=== PATIENT | male | born 1945 | race African-American/Black ===

== ENCOUNTER 2018-02-18 00:46 | Emergency (ER) | payer SELFPAY ==
[~2018-02-18] VITALS: Ht 188 cm; Wt 100.0 kg
[2018-02-18] MEDS ORDERED: MORPHINE SULFATE 4 MG/ML CPJ (NOT FOR IM USE) IV STA (01:25)
[2018-02-18 02:08] LABS: CHLORIDE 101 mEq/L (98-107)
[2018-02-18 02:09] LABS: BASOPHILS % 0.5 % (0.0-2.0); EOSINOPHILS % 0.6 % (0.0-5.0); HEMATOCRIT. 36.6 % (42.0-52.0); HEMOGLOBIN. 12.3 g/dL (14.0-18.0); LYMPHOCYTES % 9.2 % (20.0-50.0); MEAN CORPUSCULAR HEMOGLOBIN 31.1 pg (28.0-32.0); MEAN CORPUSCULAR VOLUME 92.7 fL (80.0-94.0); MONOCYTES % 7.5 % (2.0-8.0); NEUTROPHILS % 82.2 % (40.0-76.0); PLATELET 203 x1000/uL (130-400); RED BLOOD CELL COUNT 3.94 mill/uL (4.7-6.1); RED CELL DISTRIBUTION WIDTH 14.6 % (11.6-14.6)
[2018-02-18] MEDS ORDERED: MORPHINE SULFATE 4 MG/ML CPJ (NOT FOR IM USE) IV ONE (03:15)
[2018-02-18 04:45] VITALS: BP 117/70
== END 2018-02-18 04:45 | disposition home or self-care (01) ==
LOC: ER 00:46
DX: M54.9 Dorsalgia, unspecified (principal); I10 Essential (primary) hypertension; Z98.1 Arthrodesis status; Z88.3 Allergy status to other anti-infective agents; Z88.5 Allergy status to narcotic agent
CPT/HCPCS: 36415; 72128; 72131; 80053; 85025; 96374; 96376; 99285; J2270

== ENCOUNTER 2021-10-11 12:44 | Inpatient (IN) | payer MEDICARE, MEDICAID ==
[~2021-10-11] VITALS: Ht 188 cm; Wt 86.2 kg
[2021-10-11] MEDS ORDERED: ONDANSETRON HCL 4MG/2ML INJ IV STA (13:00)
[2021-10-11] MEDS ORDERED: SODIUM CHLORIDE 0.9% 1,000 ML IV ONE (13:00)
[2021-10-11] MEDS ORDERED: LIDOCAINE HCL 1% 20ML VIAL (Pyxis) INJ ONE (14:35)
[2021-10-11 15:27] LABS: BASOPHILS % 0.3 % (0.0-2.0); EOSINOPHILS % 1.2 % (0.0-5.0); HEMATOCRIT. 35.5 % (42.0-52.0); HEMOGLOBIN. 11.5 g/dL (14.0-18.0); LYMPHOCYTES % 22.4 % (20.0-50.0); MEAN CORPUSCULAR HEMOGLOBIN 27.2 pg (28.0-32.0); MEAN CORPUSCULAR VOLUME 84.1 fL (80.0-94.0); MEAN PLATELET VOLUME 7.3 fl (7.4-10.4); MONOCYTES % 7.8 % (2.0-8.0); NEUTROPHILS % 68.3 % (40.0-76.0); PLATELET 191 x1000/uL (130-400); RED BLOOD CELL COUNT 4.22 mill/uL (4.7-6.1); RED CELL DISTRIBUTION WIDTH 16.9 % (11.6-14.6)
[2021-10-11 15:38] LABS: CHLORIDE 113 mEq/L (98-107)
[2021-10-11] MEDS ORDERED: MORPHINE SULFATE 4 MG/ML CPJ (NOT FOR IM USE) IV ONE (15:45)
[2021-10-11] MEDS ORDERED: DIPHENHYDRAMINE 50MG/ML VIAL IV PRN (18:30)
[2021-10-11] MEDS ORDERED: CLONIDINE 0.1MG TABLET PO PRN (18:30)
[2021-10-11] MEDS ORDERED: DOCUSATE SODIUM 100MG CAPSULE PO PRN (18:30)
[2021-10-11] MEDS ORDERED: ONDANSETRON HCL 4MG/2ML INJ IV PRN (18:30)
[2021-10-11] MEDS ORDERED: NA PHOS,M-B/NA PHOS,DI-BA ENEMA 118ML PR PRN (18:30)
[2021-10-11] MEDS ORDERED: LORAZEPAM 2MG/ML CPJ IV PRN (18:30)
[2021-10-11] MEDS ORDERED: GUAIFENESIN 200MG/10ML SUGAR FREE UDC PO PRN (18:30)
[2021-10-11] MEDS ORDERED: ACETAMINOPHEN 325MG TABLET PO PRN (18:30)
[2021-10-11] MEDS ORDERED: IPRATROPIUM/ALBUTEROL 0.5-3(2.5)MG/3ML NEB NEB PRN (18:30)
[2021-10-11] MEDS ORDERED: HYDROCODONE/ACETAMINOPHEN 5/325MG TABLET PO PRN (18:30)
[2021-10-11] MEDS ORDERED: MAGNESIUM/ALUMINUM HYDROXIDE/SIMETHICONE 30ML UDC PO PRN (18:30)
[2021-10-11 20:00] VITALS: BP 142/72
[2021-10-11] MEDS: SODIUM CHLORIDE 0.45% 1,000 ML IV SCH (20:00)
[2021-10-11] MEDS: ENOXAPARIN 30MG/0.3ML SYR SUBCUT SCH (20:14)
[2021-10-11] MEDS: MORPHINE SULFATE 2 MG/ML CPJ (NOT FOR IM USE) IV PRN (20:16)
[2021-10-11 23:14] LABS: CHLORIDE 114 mEq/L (98-107)
[2021-10-12] MEDS: MORPHINE SULFATE 2 MG/ML CPJ (NOT FOR IM USE) IV PRN ×6 (01:15→23:44)
[2021-10-12 04:00] VITALS: BP 129/86
[2021-10-12 08:00] VITALS: BP 132/73
[2021-10-12] MEDS: SODIUM CHLORIDE 0.45% 1,000 ML IV SCH ×2 (08:10→21:10)
[2021-10-12] MEDS: ENOXAPARIN 30MG/0.3ML SYR SUBCUT SCH (08:10)
[2021-10-12] MEDS: ASPIRIN 81MG EC TABLET PO SCH (08:50)
[2021-10-12] MEDS: METOPROLOL TARTRATE 25MG TABLET PO SCH ×2 (08:50→16:56)
[2021-10-12] MEDS: AMLODIPINE 10MG TABLET PO SCH (08:51)
[2021-10-12 10:06] LABS: CHLORIDE 112 mEq/L (98-107)
[2021-10-12] MEDS ORDERED: POTASSIUM CHLORIDE 20MEQ TABLET SR PO NR (10:30)
[2021-10-12 12:00] VITALS: BP 124/80
[2021-10-12 16:00] VITALS: BP 131/76
[2021-10-12 20:00] VITALS: BP 113/75
[2021-10-12] MEDS ORDERED: NALOXONE HCL 0.4MG/ML VIAL IV PRN (21:45)
[2021-10-13] VITALS: BP 140/76
[2021-10-13 04:00] VITALS: BP 135/73
[2021-10-13] MEDS: MORPHINE SULFATE 2 MG/ML CPJ (NOT FOR IM USE) IV PRN ×5 (04:43→21:04)
[2021-10-13 08:00] VITALS: BP 138/88
[2021-10-13] MEDS: ASPIRIN 81MG EC TABLET PO SCH (08:33)
[2021-10-13] MEDS: METOPROLOL TARTRATE 25MG TABLET PO SCH ×2 (08:34→17:49)
[2021-10-13] MEDS: AMLODIPINE 10MG TABLET PO SCH (08:34)
[2021-10-13] MEDS: ENOXAPARIN 40MG/0.4ML SYR SUBCUT SCH (08:35)
[2021-10-13] MEDS: SODIUM CHLORIDE 0.45% 1,000 ML IV SCH (11:12)
[2021-10-13 12:00] VITALS: BP 116/1
[2021-10-13 16:00] VITALS: BP 130/77
[2021-10-13 20:00] VITALS: BP 123/67
[2021-10-14] VITALS: BP 134/75
[2021-10-14] MEDS: MORPHINE SULFATE 2 MG/ML CPJ (NOT FOR IM USE) IV PRN ×6 (00:08→16:43)
[2021-10-14] MEDS: SODIUM CHLORIDE 0.45% 1,000 ML IV SCH ×2 (00:12→12:43)
[2021-10-14 08:00] VITALS: BP 139/78
[2021-10-14] MEDS: ASPIRIN 81MG EC TABLET PO SCH (08:47)
[2021-10-14] MEDS: AMLODIPINE 10MG TABLET PO SCH (08:47)
[2021-10-14] MEDS: METOPROLOL TARTRATE 25MG TABLET PO SCH ×2 (08:48→16:42)
[2021-10-14] MEDS: ENOXAPARIN 40MG/0.4ML SYR SUBCUT SCH (08:49)
[2021-10-14 10:36] LABS: BASOPHILS % 0.8 % (0.0-2.0); EOSINOPHILS % 1.5 % (0.0-5.0); HEMATOCRIT. 37.3 % (42.0-52.0); HEMOGLOBIN. 12.3 g/dL (14.0-18.0); LYMPHOCYTES % 30.4 % (20.0-50.0); MEAN CORPUSCULAR HEMOGLOBIN 27.3 pg (28.0-32.0); MEAN CORPUSCULAR VOLUME 82.6 fL (80.0-94.0); MEAN PLATELET VOLUME 7.4 fl (7.4-10.4); MONOCYTES % 8.8 % (2.0-8.0); NEUTROPHILS % 58.5 % (40.0-76.0); PLATELET 175 x1000/uL (130-400); RED BLOOD CELL COUNT 4.52 mill/uL (4.7-6.1); RED CELL DISTRIBUTION WIDTH 16.7 % (11.6-14.6)
[2021-10-14 10:50] LABS: CHLORIDE 111 mEq/L (98-107)
[2021-10-14 12:20] VITALS: BP 128/70
[2021-10-14 16:00] VITALS: BP 122/68
[2021-10-14 17:08] VITALS: BP 122/68
[2021-10-30] MEDS ORDERED: OMEP40CA20 MT (01:22)
== END 2021-10-14 18:38 | disposition home or self-care (01) | DRG 392 ==
LOC: ER 12:44 → 6EST 15:28 → ENRESERV 16:38
PROVIDERS: ADMIT Internal Medicine; ATTEND Internal Medicine
PROC: 02HV33Z Insertion of Infusion Device into Superior Vena Cava, Percutaneous Approach (ICD-10-PCS; principal; 2021-10-11)
PROC: B548ZZA Ultrasonography of Superior Vena Cava, Guidance (ICD-10-PCS; 2021-10-11)
DX: K57.90 Diverticulosis of intestine, part unspecified, without perforation or abscess without bleeding (principal); E87.0 Hyperosmolality and hypernatremia; D64.9 Anemia, unspecified; E86.0 Dehydration; I10 Essential (primary) hypertension; Z82.49 Family history of ischemic heart disease and other diseases of the circulatory system; Z88.1 Allergy status to other antibiotic agents
CPT/HCPCS: 36415; 71045; 74176; 76937; 80048; 80053; 83605; 85025; 93005; 99285; J1650; J2270; J3490; J7030

== ENCOUNTER 2022-03-15 23:00 | Inpatient (IN) | payer MEDICARE, MEDICAID ==
[~2022-03-15] VITALS: Ht 188 cm; Wt 103.5 kg
[~2022-03-15 23:00] MED LIST: OMEP40CA20 MT
[2022-03-16] MEDS ORDERED: ASPIRIN 325MG EC TABLET PO ONE (02:15)
[2022-03-16 02:33] LABS: BASOPHILS % 0.7 % (0.0-2.0); EOSINOPHILS % 1.5 % (0.0-5.0); HEMATOCRIT. 43.9 % (42.0-52.0); HEMOGLOBIN. 14.4 g/dL (14.0-18.0); MEAN CORPUSCULAR HEMOGLOBIN 28.7 pg (28.0-32.0); MEAN CORPUSCULAR VOLUME 87.2 fL (80.0-94.0); MEAN PLATELET VOLUME 7.7 fl (7.4-10.4); MONOCYTES % 10.5 % (2.0-8.0); NEUTROPHILS % 61.3 % (40.0-76.0); PLATELET 197 x1000/uL (130-400); RED BLOOD CELL COUNT 5.03 mill/uL (4.7-6.1); RED CELL DISTRIBUTION WIDTH 15.7 % (11.6-14.6)
[2022-03-16 02:40] LABS: CHLORIDE 107 mEq/L (98-107)
[2022-03-16 02:51] LABS: ETHANOL BLOOD < 10 mg/dL
[2022-03-16] MEDS ORDERED: HYDROCODONE/ACETAMINOPHEN 5/325MG TABLET PO PRN ×2 (09:45→14:30)
[2022-03-16] MEDS ORDERED: NALOXONE HCL 0.4MG/ML VIAL IV PRN (10:00)
[2022-03-16 14:30] VITALS: BP 133/74
[2022-03-16] MEDS ORDERED: LORAZEPAM 0.5MG TABLET PO PRN (14:30)
[2022-03-16] MEDS ORDERED: IPRATROPIUM/ALBUTEROL 0.5-3(2.5)MG/3ML NEB HHN PRN (14:30)
[2022-03-16] MEDS ORDERED: CLONIDINE 0.1MG TABLET PO PRN (14:30)
[2022-03-16] MEDS: OMEPRAZOLE 20MG CAPSULE EXTENDED RELEASE PO SCH (14:30)
[2022-03-16] MEDS ORDERED: ACETAMINOPHEN 325MG TABLET PO PRN ×2 (14:30)
[2022-03-16] MEDS ORDERED: DOCUSATE SODIUM 100MG CAPSULE PO PRN (14:30)
[2022-03-16] MEDS ORDERED: ONDANSETRON HCL 4MG/2ML INJ IV PRN (14:30)
[2022-03-16 15:19] LABS: T4 FREE 0.79 ng/dL (0.76-1.46)
[2022-03-16 16:11] VITALS: BP 134/77
[2022-03-16 20:00] VITALS: BP 143/75
[2022-03-16] MEDS ORDERED: ATOR-2 PO (20:28)
[2022-03-16] MEDS ORDERED: MELA5TAB19 PO (20:28)
[2022-03-16] MEDS ORDERED: GABA-532 PO (20:28)
[2022-03-16] MEDS ORDERED: XALAO LEFTEYE (20:28)
[2022-03-16] MEDS ORDERED: PRED5DRO22 RIGHTEYE (20:28)
[2022-03-16] MEDS ORDERED: ASPI-1406 PO (20:28)
[2022-03-16] MEDS ORDERED: LEVO75TA7 PO (20:29)
[2022-03-17] VITALS: BP 120/72
[2022-03-17] MEDS ORDERED: *PATIENT'S OWN MEDICATION STORAGE XX SCH (00:15)
[2022-03-17 04:00] VITALS: BP 126/73
[2022-03-17] MEDS: OMEPRAZOLE 20MG CAPSULE EXTENDED RELEASE PO SCH (06:43)
[2022-03-17 08:03] VITALS: BP 127/62
[2022-03-17 12:00] VITALS: BP 102/51
[2022-03-17] MEDS: GABAPENTIN 300MG CAPSULE PO SCH ×2 (13:54→21:23)
[2022-03-17] MEDS: ASPIRIN 81MG TABLET PO SCH (13:54)
[2022-03-17] MEDS: LEVOTHYROXINE SODIUM 75MCG TABLET PO SCH (13:54)
[2022-03-17] MEDS: HYDROCODONE/ACETAMINOPHEN 10/325MG TABLET PO PRN (18:54)
[2022-03-17] MEDS: PREDNISOLONE ACETATE 1% OPHTH DROPS 5ML BOTHEYE SCH (18:54)
[2022-03-17 20:00] VITALS: BP 120/66
[2022-03-17] MEDS: LATANOPROST 0.005% OPHTH DROPS 2.5ML BOTHEYE SCH (20:39)
[2022-03-17] MEDS: ATORVASTATIN CALCIUM 40MG TABLET PO SCH (20:39)
[2022-03-17] MEDS ORDERED: MELATONIN 5 MG TABLET XX PRN (21:00)
[2022-03-18] VITALS: BP 129/66
[2022-03-18] MEDS: PREDNISOLONE ACETATE 1% OPHTH DROPS 5ML BOTHEYE SCH ×5 (01:46→23:40)
[2022-03-18 04:00] VITALS: BP 129/87
[2022-03-18] MEDS: GABAPENTIN 300MG CAPSULE PO SCH ×3 (06:05→21:35)
[2022-03-18] MEDS: LEVOTHYROXINE SODIUM 75MCG TABLET PO SCH (06:05)
[2022-03-18] MEDS: OMEPRAZOLE 20MG CAPSULE EXTENDED RELEASE PO SCH (06:05)
[2022-03-18] MEDS: HYDROCODONE/ACETAMINOPHEN 10/325MG TABLET PO PRN (06:09)
[2022-03-18 07:12] LABS: EOSINOPHILS % 2.3 % (0.0-5.0); HEMATOCRIT. 38.3 % (42.0-52.0); HEMOGLOBIN. 12.9 g/dL (14.0-18.0); LYMPHOCYTES % 31.7 % (20.0-50.0); MEAN CORPUSCULAR VOLUME 86.5 fL (80.0-94.0); MEAN PLATELET VOLUME 8.3 fl (7.4-10.4); MONOCYTES % 7.8 % (2.0-8.0); NEUTROPHILS % 57.2 % (40.0-76.0); PLATELET 167 x1000/uL (130-400); RED BLOOD CELL COUNT 4.43 mill/uL (4.7-6.1); RED CELL DISTRIBUTION WIDTH 15.1 % (11.6-14.6)
[2022-03-18 07:22] LABS: CHLORIDE 107 mEq/L (98-107)
[2022-03-18 08:00] VITALS: BP 114/73
[2022-03-18] MEDS: ASPIRIN 81MG TABLET PO SCH (08:30)
[2022-03-18] MEDS: MORPHINE SULFATE 2 MG/ML CPJ (NOT FOR IM USE) IV PRN ×3 (10:26→21:37)
[2022-03-18 12:00] VITALS: BP 118/66
[2022-03-18] MEDS ORDERED: IOHEXOL-350 100 ML BOTTLE ONE (12:01)
[2022-03-18] MEDS ORDERED: LORAZEPAM 2MG/ML CPJ IV NR (13:00)
[2022-03-18] MEDS: DICLOFENAC SODIUM 1% GEL 50GM TOP SCH ×2 (14:19→21:36)
[2022-03-18 16:00] VITALS: BP 118/63
[2022-03-18 20:00] VITALS: BP 109/63
[2022-03-18] MEDS: ATORVASTATIN CALCIUM 40MG TABLET PO SCH (21:35)
[2022-03-18] MEDS: LATANOPROST 0.005% OPHTH DROPS 2.5ML BOTHEYE SCH (21:36)
[2022-03-19] VITALS: BP 142/59
[2022-03-19 03:56] VITALS: BP 133/64
[2022-03-19] MEDS: MORPHINE SULFATE 2 MG/ML CPJ (NOT FOR IM USE) IV PRN ×4 (04:32→20:17)
[2022-03-19] MEDS: PREDNISOLONE ACETATE 1% OPHTH DROPS 5ML BOTHEYE SCH ×3 (06:04→17:20)
[2022-03-19] MEDS: GABAPENTIN 300MG CAPSULE PO SCH ×3 (06:04→21:16)
[2022-03-19] MEDS: LEVOTHYROXINE SODIUM 75MCG TABLET PO SCH (06:04)
[2022-03-19 06:21] LABS: BASOPHILS % 0.6 % (0.0-2.0); EOSINOPHILS % 2.7 % (0.0-5.0); HEMATOCRIT. 38.2 % (42.0-52.0); HEMOGLOBIN. 12.8 g/dL (14.0-18.0); MEAN CORPUSCULAR HEMOGLOBIN 28.8 pg (28.0-32.0); MEAN CORPUSCULAR VOLUME 85.8 fL (80.0-94.0); MONOCYTES % 7.1 % (2.0-8.0); NEUTROPHILS % 64.6 % (40.0-76.0); PLATELET 168 x1000/uL (130-400); RED BLOOD CELL COUNT 4.45 mill/uL (4.7-6.1)
[2022-03-19 08:00] VITALS: BP 117/74
[2022-03-19] MEDS: FAMOTIDINE 20MG TABLET PO SCH ×2 (09:12→20:16)
[2022-03-19] MEDS: ASPIRIN 81MG TABLET PO SCH (09:12)
[2022-03-19] MEDS: DICLOFENAC SODIUM 1% GEL 50GM TOP SCH ×4 (09:12→20:16)
[2022-03-19 12:00] VITALS: BP 131/80
[2022-03-19 16:00] VITALS: BP 132/68
[2022-03-19 16:38] LABS: CLARITY URINE CLEAR (CLEAR); COLOR URINE YELLOW (YELLOW); KETONES URINE NEGATIVE (NEGATIVE); LEUKOCYTE ESTERASE URINE TRACE (NEGATIVE); NITRITE URINE NEGATIVE (NEGATIVE); OCCULT BLOOD URINE NEGATIVE (NEGATIVE); PH URINE 6.5 (4.5-8.0); PROTEIN URINE NEGATIVE (NEGATIVE); SPECIFIC GRAVITY URINE 1.007 (1.005-1.030); UROBILINOGEN URINE 0.2 E.U./dL (0.2-1.0)
[2022-03-19 20:00] VITALS: BP 116/62
[2022-03-19] MEDS: LATANOPROST 0.005% OPHTH DROPS 2.5ML BOTHEYE SCH (20:16)
[2022-03-19] MEDS: ATORVASTATIN CALCIUM 40MG TABLET PO SCH (20:16)
[2022-03-20] VITALS (7 sets, daily range): BP systolic 105–124; BP diastolic 64–73
[2022-03-20] MEDS: PREDNISOLONE ACETATE 1% OPHTH DROPS 5ML BOTHEYE SCH ×4 (00:42→17:41)
[2022-03-20] MEDS: MORPHINE SULFATE 2 MG/ML CPJ (NOT FOR IM USE) IV PRN ×5 (00:45→17:41)
[2022-03-20] MEDS: GABAPENTIN 300MG CAPSULE PO SCH ×2 (05:02→14:39)
[2022-03-20] MEDS: LEVOTHYROXINE SODIUM 75MCG TABLET PO SCH (06:11)
[2022-03-20] MEDS: ASPIRIN 81MG TABLET PO SCH (08:24)
[2022-03-20] MEDS: FAMOTIDINE 20MG TABLET PO SCH (08:25)
[2022-03-20] MEDS: DICLOFENAC SODIUM 1% GEL 50GM TOP SCH ×3 (08:26→17:42)
[2022-03-20] MEDS ORDERED: HYDR-4009 PO (15:06)
== END 2022-03-20 18:39 | disposition home or self-care (01) | DRG 92 ==
LOC: ER 23:00 → EDBEDREQSVC 03-16 02:24 → EDBEDREQTM 03-16 02:24 → EDBEDREQ 03-16 02:24 → EDBEDREQTM 03-16 03:10 → ENRESERV 03-16 12:23 → 8WST 03-16 14:14
PROVIDERS: ADMIT Internal Medicine; ATTEND Internal Medicine
PROC: 05HY33Z Insertion of Infusion Device into Upper Vein, Percutaneous Approach (ICD-10-PCS; principal; 2022-03-17)
PROC: 4A00X4Z Measurement of Central Nervous Electrical Activity, External Approach (ICD-10-PCS; 2022-03-19)
DX: G92.8 Other toxic encephalopathy (principal); I69.354 Hemiplegia and hemiparesis following cerebral infarction affecting left non-dominant side; R65.10 Systemic inflammatory response syndrome (SIRS) of non-infectious origin without acute organ dysfunction; E78.5 Hyperlipidemia, unspecified; G62.9 Polyneuropathy, unspecified; I10 Essential (primary) hypertension; N40.0 Benign prostatic hyperplasia without lower urinary tract symptoms; E03.9 Hypothyroidism, unspecified; G89.29 Other chronic pain; Z88.1 Allergy status to other antibiotic agents
CPT/HCPCS: 36415; 36573; 70551; 71045; 71275; 72141; 72146; 72148; 72170; 73610; 80048; 80053; 80061; 80320; 81003; 84439; 84443; 84481; 84484; 85025; 85379; 93005; 93306; 93880; 95816; 99291; C1725; C1893; J2060; J2270; Q9967; G0480

== ENCOUNTER 2022-04-23 02:18 | Emergency (ER) | payer MEDICARE, MEDICAID ==
[~2022-04-23] VITALS: Ht 188 cm; Wt 106.4 kg
[~2022-04-23 02:18] MED LIST changes: +ASPI-1406 PO; +ATOR-2 PO; +GABA-532 PO; +HYDR-4009 PO; +LEVO75TA7 PO; +MELA5TAB19 PO; +PRED5DRO22 RIGHTEYE; +XALAO LEFTEYE
[2022-04-23 04:42] LABS: BASOPHILS % 0.4 % (0.0-2.0); EOSINOPHILS % 0.9 % (0.0-5.0); HEMATOCRIT. 41.4 % (42.0-52.0); LYMPHOCYTES % 15.9 % (20.0-50.0); MEAN CORPUSCULAR VOLUME 88.9 fL (80.0-94.0); MEAN PLATELET VOLUME 7.6 fl (7.4-10.4); MONOCYTES % 7.6 % (2.0-8.0); NEUTROPHILS % 75.2 % (40.0-76.0); PLATELET 157 x1000/uL (130-400); RED BLOOD CELL COUNT 4.66 mill/uL (4.7-6.1); RED CELL DISTRIBUTION WIDTH 15.7 % (11.6-14.6)
[2022-04-23 04:50] LABS: CHLORIDE 107 mEq/L (98-107)
[2022-04-23] MEDS ORDERED: MORPHINE SULFATE 4 MG/ML CPJ (NOT FOR IM USE) IV ONE (05:15)
[2022-04-23] MEDS ORDERED: ONDANSETRON HCL 4MG/2ML INJ IV ONE (05:15)
[2022-04-23] MEDS ORDERED: METH-653 MT (07:19)
[2022-04-23] MEDS ORDERED: HYDR-4001 MT (07:19)
[2022-04-23 07:47] VITALS: BP 131/68
== END 2022-04-23 07:50 | disposition home or self-care (01) ==
LOC: ER 02:18
DX: S16.1XXA Strain of muscle, fascia and tendon at neck level, initial encounter (principal); S29.012A Strain of muscle and tendon of back wall of thorax, initial encounter; I10 Essential (primary) hypertension; Z88.3 Allergy status to other anti-infective agents; E03.9 Hypothyroidism, unspecified; N40.0 Benign prostatic hyperplasia without lower urinary tract symptoms; M54.30 Sciatica, unspecified side; Z98.1 Arthrodesis status; G62.9 Polyneuropathy, unspecified; Z87.81 Personal history of (healed) traumatic fracture; Z79.82 Long term (current) use of aspirin; W22.09XA Striking against other stationary object, initial encounter; Y93.89 Activity, other specified; Y92.018 Other place in single-family (private) house as the place of occurrence of the external cause
CPT/HCPCS: 36415; 70450; 71045; 72125; 72128; 72131; 80048; 84484; 85025; 93005; 96374; 96375; 99285; J2270; J2405

== ENCOUNTER 2022-05-16 00:07 | Inpatient (IN) | payer MEDICARE, MEDICAID ==
[~2022-05-16] VITALS: Ht 182.9 cm; Wt 105.7 kg
[~2022-05-16 00:07] MED LIST changes: +HYDR-4001 MT; +METH-653 MT
[2022-05-16] MEDS ORDERED: MORPHINE SULFATE 4 MG/ML CPJ (NOT FOR IM USE) IV ONE (01:15)
[2022-05-16 01:26] LABS: BASOPHILS % 0.6 % (0.0-2.0); EOSINOPHILS % 0.8 % (0.0-5.0); HEMATOCRIT. 39.4 % (42.0-52.0); HEMOGLOBIN. 13.4 g/dL (14.0-18.0); LYMPHOCYTES % 22.8 % (20.0-50.0); MEAN CORPUSCULAR HEMOGLOBIN 29.7 pg (28.0-32.0); MEAN CORPUSCULAR VOLUME 87.6 fL (80.0-94.0); MEAN PLATELET VOLUME 7.4 fl (7.4-10.4); MONOCYTES % 9.3 % (2.0-8.0); NEUTROPHILS % 66.5 % (40.0-76.0); PLATELET 188 x1000/uL (130-400); RED BLOOD CELL COUNT 4.49 mill/uL (4.7-6.1); RED CELL DISTRIBUTION WIDTH 15.6 % (11.6-14.6)
[2022-05-16 01:37] LABS: CHLORIDE 106 mEq/L (98-107)
[2022-05-16 01:46] LABS: ETHANOL BLOOD < 10 mg/dL
[2022-05-16 01:47] LABS: INR 1.1; PROTHROMBIN TIME 11.4 sec (9.6-11.0)
[2022-05-16] MEDS ORDERED: IOHEXOL-350 100 ML BOTTLE ONE (03:43)
[2022-05-16] MEDS ORDERED: IPRATROPIUM/ALBUTEROL 0.5-3(2.5)MG/3ML NEB HHN PRN (03:45)
[2022-05-16] MEDS ORDERED: ACETAMINOPHEN 650MG SUPP PR PRN ×2 (03:45)
[2022-05-16] MEDS ORDERED: ONDANSETRON HCL 4MG/2ML INJ IV PRN (03:45)
[2022-05-16] MEDS: HYDROMORPHONE HCL/PF 2MG/ML CPJ IV PRN ×4 (04:48→23:06)
[2022-05-16 05:35] VITALS: BP 122/69
[2022-05-16 08:00] VITALS: BP 110/54
[2022-05-16] MEDS: ENOXAPARIN 30MG/0.3ML SYR SUBCUT SCH ×2 (08:12→21:47)
[2022-05-16 12:00] VITALS: BP 104/61
[2022-05-16 12:41] LABS: TOTAL IRON BINDING CAPACITY 358 ug/dL (250-450)
[2022-05-16 12:53] LABS: PHOSPHORUS 3.1 mg/dL (2.5-4.9)
[2022-05-16 13:01] LABS: FOLIC ACID (FOLATE) SERUM >20 ng/mL ng/mL (>5.38); VITAMIN B12 SERUM 371 pg/mL (211-911)
[2022-05-16 16:00] VITALS: BP 117/63
[2022-05-16] MEDS ORDERED: NALOXONE HCL 0.4MG/ML VIAL IV PRN (18:00)
[2022-05-16 20:00] VITALS: BP 90/55
[2022-05-17] VITALS: BP 119/65
[2022-05-17 05:00] VITALS: BP 111/66
[2022-05-17] MEDS: HYDROMORPHONE HCL/PF 2MG/ML CPJ IV PRN ×3 (06:25→21:00)
[2022-05-17] MEDS ORDERED: LORAZEPAM 2MG/ML CPJ IV PRN (07:15)
[2022-05-17 08:07] LABS: BASOPHILS % 0.8 % (0.0-2.0); EOSINOPHILS % 2.1 % (0.0-5.0); HEMATOCRIT. 38.9 % (42.0-52.0); LYMPHOCYTES % 27.8 % (20.0-50.0); MEAN CORPUSCULAR HEMOGLOBIN 29.4 pg (28.0-32.0); MEAN CORPUSCULAR VOLUME 88.2 fL (80.0-94.0); NEUTROPHILS % 59.3 % (40.0-76.0); RED BLOOD CELL COUNT 4.41 mill/uL (4.7-6.1); RED CELL DISTRIBUTION WIDTH 15.5 % (11.6-14.6)
[2022-05-17 08:29] LABS: CHLORIDE 109 mEq/L (98-107)
[2022-05-17 08:43] LABS: HDL CHOLESTEROL 44 mg/dL (40-59); LDL CHOLESTEROL 52 mg/dL (5-100); T4 FREE 0.95 ng/dL (0.76-1.46)
[2022-05-17 10:16] LABS: PLATELET 159 x1000/uL (130-400)
[2022-05-17] MEDS: ENOXAPARIN 30MG/0.3ML SYR SUBCUT SCH ×2 (10:27→20:28)
[2022-05-17 12:00] VITALS: BP 112/67
[2022-05-17] MEDS: DULOXETINE HCL 30MG DR CAPSULE PO SCH ×2 (14:30→17:59)
[2022-05-17 16:00] VITALS: BP 117/56
[2022-05-17 20:01] VITALS: BP 127/65
[2022-05-18] VITALS: BP 107/54
[2022-05-18] MEDS: HYDROMORPHONE HCL/PF 2MG/ML CPJ IV PRN ×4 (03:45→21:24)
[2022-05-18 03:59] VITALS: BP 98/46
[2022-05-18 08:00] VITALS: BP 109/52
[2022-05-18] MEDS: DULOXETINE HCL 30MG DR CAPSULE PO SCH ×2 (09:00→09:04)
[2022-05-18] MEDS: ENOXAPARIN 30MG/0.3ML SYR SUBCUT SCH ×2 (09:04→21:24)
[2022-05-18] MEDS: HYDROCODONE/ACETAMINOPHEN 10/325MG TABLET PO PRN ×2 (12:26→19:44)
[2022-05-18 12:28] VITALS: BP 111/60
[2022-05-18 16:00] VITALS: BP 111/68
[2022-05-18 20:00] VITALS: BP 112/61
[2022-05-19] VITALS: BP 97/52
[2022-05-19] MEDS: HYDROMORPHONE HCL/PF 2MG/ML CPJ IV PRN ×2 (03:54→10:26)
[2022-05-19 04:00] VITALS: BP 102/66
[2022-05-19 08:00] VITALS: BP 108/51
[2022-05-19] MEDS: DULOXETINE HCL 30MG DR CAPSULE PO SCH (08:17)
[2022-05-19] MEDS: HYDROCODONE/ACETAMINOPHEN 10/325MG TABLET PO PRN (08:20)
[2022-05-19] MEDS: ENOXAPARIN 30MG/0.3ML SYR SUBCUT SCH (08:21)
[2022-05-19 12:00] VITALS: BP 125/81
[2022-05-19 13:06] VITALS: BP 125/81
== END 2022-05-19 16:05 | disposition home or self-care (01) | DRG 102 ==
LOC: ER 00:07 → 7WST 02:25 → EDBEDREQ 02:27 → EDBEDREQTM 02:36 → ENRESERV 03:22
PROVIDERS: ADMIT Hospitalist; ATTEND Hospitalist
PROC: 02HV33Z Insertion of Infusion Device into Superior Vena Cava, Percutaneous Approach (ICD-10-PCS; 2022-05-17)
PROC: B548ZZA Ultrasonography of Superior Vena Cava, Guidance (ICD-10-PCS; 2022-05-17)
PROC: B5181ZA Fluoroscopy of Superior Vena Cava using Low Osmolar Contrast, Guidance (ICD-10-PCS; 2022-05-17)
PROC: 4A00X4Z Measurement of Central Nervous Electrical Activity, External Approach (ICD-10-PCS; principal; 2022-05-19)
DX: G43.909 Migraine, unspecified, not intractable, without status migrainosus (principal); G92.8 Other toxic encephalopathy; G45.9 Transient cerebral ischemic attack, unspecified; I69.354 Hemiplegia and hemiparesis following cerebral infarction affecting left non-dominant side; D64.9 Anemia, unspecified; E03.9 Hypothyroidism, unspecified; E78.00 Pure hypercholesterolemia, unspecified; Z20.822 Contact with and (suspected) exposure to COVID-19; I10 Essential (primary) hypertension; H53.8 Other visual disturbances; R32 Unspecified urinary incontinence; M47.816 Spondylosis without myelopathy or radiculopathy, lumbar region; M47.22 Other spondylosis with radiculopathy, cervical region; M51.36 Other intervertebral disc degeneration, lumbar region; G89.4 Chronic pain syndrome; Z88.1 Allergy status to other antibiotic agents; Z79.82 Long term (current) use of aspirin
CPT/HCPCS: 36415; 36573; 70496; 70498; 70551; 71045; 72141; 72148; 80053; 80061; 80320; 82607; 82746; 83036; 83540; 83550; 83735; 83880; 84100; 84439; 84443; 84484; 85025; 87426; 92523; 92610; 93005; 93306; 95816; 97161; 97166; 99285; C1725; C9803; J1170; J1650; J2060; J2270; J2405; Q9967; G0480

== ENCOUNTER 2025-04-06 19:12 | Inpatient (IN) | payer MEDICARE, MEDICAID ==
[~2025-04-06] VITALS: Ht 182.9 cm; Wt 97.5 kg
[~2025-04-06 19:12] MED LIST changes: +GABA-1180 PO; -GABA-532 PO; +LEVO50TA8 MT; -LEVO75TA7 PO; +TAMS-54 MT
[2025-04-06 19:19] VITALS: O2SAT 100
[2025-04-06] MEDS: MORPHINE SULFATE 4 MG/ML INJ (FOR IV/IM USE) IV ONE (20:55)
[2025-04-06 21:26] LABS: BASOPHILS % 0.3 % (0.0-2.0); EOSINOPHILS % 1.8 % (0.0-5.0); HEMATOCRIT. 38.9 % (42.0-52.0); HEMOGLOBIN. 12.4 g/dL (14.0-18.0); LYMPHOCYTES % 19.2 % (20.0-50.0); MEAN PLATELET VOLUME 8.0 fl (7.4-10.4); MONOCYTES % 8.3 % (2.0-8.0); NEUTROPHILS % 70.4 % (40.0-76.0); PLATELET 161 x1000/uL (130-400); RED BLOOD CELL COUNT 4.17 mill/uL (4.7-6.1); RED CELL DISTRIBUTION WIDTH 16.3 % (11.6-14.6)
[2025-04-06 21:40] LABS: CREATININE 1.1 mg/dL (0.6-1.3); UREA NITROGEN BLOOD 16 mg/dL (9-23)
[2025-04-06 21:41] LABS: TROPONIN I HIGH SENSITIVITY 20 ng/L (3.0-53)
[2025-04-06 21:42] LABS: ASPARTATE AMINOTRANSFERASE 34 IU/L (<34); BILIRUBIN DIRECT 0.1 mg/dL (<=3.0)
[2025-04-06 21:43] LABS: BILIRUBIN TOTAL 0.5 mg/dL (0.1-1.0); PROTEIN TOTAL 6.5 g/dL (6.0-8.3)
[2025-04-06] MEDS ORDERED: GUAIFENESIN 200MG/10ML SUGAR FREE UDC PO PRN (22:30)
[2025-04-06] MEDS ORDERED: DIPHENHYDRAMINE 50MG/ML VIAL IV PRN (22:30)
[2025-04-06] MEDS ORDERED: NITROGLYCERIN 0.4MG TABLET SL SL PRN (22:30)
[2025-04-06] MEDS ORDERED: CLONIDINE 0.1MG TABLET PO PRN (22:30)
[2025-04-06] MEDS ORDERED: LORAZEPAM 0.5MG TABLET PO PRN (22:30)
[2025-04-06] MEDS ORDERED: ACETAMINOPHEN 325MG TABLET PO PRN ×2 (22:30)
[2025-04-06] MEDS ORDERED: NALOXONE HCL 0.4MG/ML VIAL IV PRN (22:30)
[2025-04-06] MEDS ORDERED: IPRATROPIUM/ALBUTEROL 0.5-3(2.5)MG/3ML NEB HHN PRN (22:30)
[2025-04-06] MEDS ORDERED: ONDANSETRON HCL 4MG/2ML INJ IV PRN (22:30)
[2025-04-06] MEDS: LEVOTHYROXINE SODIUM 75MCG TABLET PO NR (23:48)
[2025-04-06] MEDS: IOHEXOL-350 100 ML BOTTLE ONE (23:56)
[2025-04-07] VITALS: BP 112/52; PULSE 61; RESP 18; TEMP 36.4; O2SAT 98
[2025-04-07 00:06] LABS: CREATININE 1.1 mg/dL (0.6-1.3)
[2025-04-07 00:08] LABS: UREA NITROGEN BLOOD 13 mg/dL (9-23)
[2025-04-07 00:10] LABS: PHOSPHORUS 2.7 mg/dL (2.5-4.9)
[2025-04-07] MEDS: MORPHINE SULFATE 4 MG/ML INJ (FOR IV/IM USE) IV PRN (01:26)
[2025-04-07 02:20] VITALS: BP 112/52; PULSE 61; RESP 18; TEMP 36.418; TEMP 36.4180
[2025-04-07] MEDS: HYDROCODONE/ACETAMINOPHEN 5/325MG TABLET PO PRN (03:16)
[2025-04-07 05:29] VITALS: BP 105/44; PULSE 64; RESP 15
[2025-04-07] MEDS: PANTOPRAZOLE 40MG DR TABLET PO SCH (06:52)
[2025-04-07] MEDS: GABAPENTIN 300MG CAPSULE PO SCH (06:52)
[2025-04-07 07:31] LABS: BASOPHILS % 0.6 % (0.0-2.0); EOSINOPHILS % 3.6 % (0.0-5.0); HEMATOCRIT. 38.4 % (42.0-52.0); HEMOGLOBIN. 12.7 g/dL (14.0-18.0); LYMPHOCYTES % 24.5 % (20.0-50.0); MEAN PLATELET VOLUME 8.4 fl (7.4-10.4); MONOCYTES % 9.9 % (2.0-8.0); NEUTROPHILS % 61.4 % (40.0-76.0); PLATELET 162 x1000/uL (130-400); RED BLOOD CELL COUNT 4.23 mill/uL (4.7-6.1); RED CELL DISTRIBUTION WIDTH 15.2 % (11.6-14.6)
[2025-04-07 07:47] LABS: TRIGLYCERIDE 75.0 mg/dL (0-150)
[2025-04-07 07:48] LABS: LDL CHOLESTEROL 49.0 mg/dL (5-100)
[2025-04-07 07:52] LABS: T4 FREE 1.02 ng/dL (0.89-1.76)
[2025-04-07] MEDS ORDERED: ASPIRIN 81MG EC TABLET PO SCH (09:00)
[2025-04-07] MEDS ORDERED: TAMSULOSIN HCL 0.4MG SR CAPSULE PO SCH (09:00)
[2025-04-07] MEDS ORDERED: ENOXAPARIN 40MG/0.4ML SYR SUBCUT SCH (09:00)
[2025-04-07] MEDS ORDERED: ATORVASTATIN CALCIUM 40MG TABLET PO SCH (21:00)
== END 2025-04-07 09:54 | disposition left against medical advice (07) | DRG 282 ==
LOC: ER 19:12 → EDBEDREQTM 22:10 → EDBEDREQ 22:10 → ENRESERV 04-07 00:16 → 5WST 04-07 00:55
PROVIDERS: ADMIT Internal Medicine; ATTEND Internal Medicine
DX: I25.110 Atherosclerotic heart disease of native coronary artery with unstable angina pectoris (principal); I21.A1 Myocardial infarction type 2; D64.9 Anemia, unspecified; I95.9 Hypotension, unspecified; Z53.29 Procedure and treatment not carried out because of patient's decision for other reasons; I11.9 Hypertensive heart disease without heart failure; E03.9 Hypothyroidism, unspecified; M47.812 Spondylosis without myelopathy or radiculopathy, cervical region; Z86.73 Personal history of transient ischemic attack (TIA), and cerebral infarction without residual deficits; Z79.899 Other long term (current) drug therapy; Z88.1 Allergy status to other antibiotic agents; Z88.8 Allergy status to other drugs, medicaments and biological substances
CPT/HCPCS: 36415; 71045; 71275; 80048; 80061; 80076; 82040; 83735; 83880; 84100; 84439; 84443; 84481; 84484; 85025; 85379; 93005; 99285; A4606; J1650; J2270; Q9967

== ENCOUNTER 2025-04-22 19:26 | Inpatient (IN) | payer MEDICARE, MEDICAID ==
[~2025-04-22] VITALS: Ht 188 cm; Wt 97.1 kg
[~2025-04-22 19:26] MED LIST changes: -LEVO50TA8 MT; +LEVO50TA8 PO
[2025-04-22 19:37] VITALS: O2SAT 94
[2025-04-22] MEDS ORDERED: MORPHINE SULFATE 4 MG/ML INJ (FOR IV/IM USE) IV ONE (20:00)
[2025-04-22] MEDS: ENOXAPARIN 80MG/0.8ML SYR SUBCUT ONE (20:36)
[2025-04-22] MEDS: ASPIRIN 325MG TABLET PO ONE (20:36)
[2025-04-22 21:08] LABS: BASOPHILS % 0.7 % (0.0-2.0); EOSINOPHILS % 2.3 % (0.0-5.0); HEMATOCRIT. 39.4 % (42.0-52.0); HEMOGLOBIN. 13.1 g/dL (14.0-18.0); LYMPHOCYTES % 18.4 % (20.0-50.0); MEAN PLATELET VOLUME 8.3 fl (7.4-10.4); MONOCYTES % 8.2 % (2.0-8.0); NEUTROPHILS % 70.4 % (40.0-76.0); PLATELET 181 x1000/uL (130-400); RED BLOOD CELL COUNT 4.35 mill/uL (4.7-6.1); RED CELL DISTRIBUTION WIDTH 15.5 % (11.6-14.6)
[2025-04-22 21:25] LABS: CREATININE 1.1 mg/dL (0.6-1.3); UREA NITROGEN BLOOD 14 mg/dL (9-23)
[2025-04-22 21:26] LABS: TROPONIN I HIGH SENSITIVITY < 4 ng/L (3.0-53)
[2025-04-22 21:27] LABS: ASPARTATE AMINOTRANSFERASE 21 IU/L (<34); BILIRUBIN DIRECT 0.3 mg/dL (<=3.0); BILIRUBIN TOTAL 0.7 mg/dL (0.1-1.0); PROTEIN TOTAL 6.3 g/dL (6.0-8.3)
[2025-04-22] MEDS: SODIUM CHLORIDE 0.9% 1,000 ML IV ONE (22:09)
[2025-04-22] MEDS: ONDANSETRON HCL 4MG/2ML INJ IV ONE (22:10)
[2025-04-22] MEDS: MORPHINE SULFATE 4 MG/ML INJ (FOR IV/IM USE) IV SCH (22:10)
[2025-04-22] MEDS: NITROGLYCERIN 0.4MG TABLET SL SL ONE (22:23)
[2025-04-23 00:24] VITALS: BP 139/85; PULSE 66; RESP 13; TEMP 36.7; TEMP 36.7516; O2SAT 99
[2025-04-23] MEDS ORDERED: IOHEXOL-350 100 ML BOTTLE ONE (00:56)
[2025-04-23] MEDS ORDERED: MELATONIN 3MG TABLET PO PRN (01:00)
[2025-04-23] MEDS ORDERED: NALOXONE HCL 0.4MG/ML VIAL IV PRN (01:30)
[2025-04-23] MEDS: HYDROCODONE/ACETAMINOPHEN 10/325MG TABLET PO PRN (03:35)
[2025-04-23 04:00] VITALS: BP 120/73; PULSE 61; RESP 22; TEMP 36.2; O2SAT 98
[2025-04-23] MEDS: GABAPENTIN 300MG CAPSULE PO SCH (06:10)
[2025-04-23] MEDS: LEVOTHYROXINE SODIUM 75MCG TABLET PO SCH (06:11)
[2025-04-23 08:00] VITALS: BP 123/67; PULSE 59; RESP 17; TEMP 36.4; O2SAT 99
[2025-04-23] MEDS ORDERED: ONDANSETRON HCL 4MG/2ML INJ IV PRN (08:30)
[2025-04-23] MEDS ORDERED: ACETAMINOPHEN 325MG TABLET PO PRN (08:30)
[2025-04-23] MEDS ORDERED: PANTOPRAZOLE 40MG DR TABLET PO SCH (09:00)
[2025-04-23] MEDS: MORPHINE SULFATE 2 MG/ML INJ (NOT FOR IM USE) IV NR (09:19)
[2025-04-23] MEDS: PANTOPRAZOLE SODIUM 40 MG/VIAL IV SCH (09:37)
[2025-04-23] MEDS: ASPIRIN 81MG TABLET PO SCH (09:37)
[2025-04-23] MEDS: TAMSULOSIN HCL 0.4MG SR CAPSULE PO SCH (09:38)
[2025-04-23 12:00] VITALS: BP 132/76; PULSE 74; RESP 15; TEMP 36.4; O2SAT 98
[2025-04-23 12:09] LABS: HEMATOCRIT. 39.7 % (42.0-52.0); HEMOGLOBIN. 12.9 g/dL (14.0-18.0); MEAN PLATELET VOLUME 8.4 fl (7.4-10.4); PLATELET 162 x1000/uL (130-400); RED BLOOD CELL COUNT 4.33 mill/uL (4.7-6.1); RED CELL DISTRIBUTION WIDTH 15.8 % (11.6-14.6)
[2025-04-23 12:23] LABS: CREATININE 0.8 mg/dL (0.6-1.3); TRIGLYCERIDE 108 mg/dL (0-150)
[2025-04-23 12:24] LABS: LDL CHOLESTEROL 58 mg/dL (5-100); UREA NITROGEN BLOOD 15 mg/dL (9-23)
[2025-04-23 12:28] LABS: T4 FREE 1.06 ng/dL (0.89-1.76)
[2025-04-23 16:00] VITALS: BP 113/68; PULSE 64; RESP 14; TEMP 36.6; O2SAT 97
[2025-04-23 17:05] LABS: LYMPHOCYTES % MANUAL 30.0 % (20.0-50.0); MONOCYTES % MANUAL 7.0 % (2.0-8.0); NEUTROPHILS % MANUAL 63.0 % (45.0-75.0); PLATELET ESTIMATE NORMAL
[2025-04-23 20:01] VITALS: BP 111/63; PULSE 62; RESP 21; TEMP 36.8; O2SAT 98
[2025-04-23] MEDS: ATORVASTATIN CALCIUM 40MG TABLET PO SCH (21:35)
[2025-04-23] MEDS: PREDNISOLONE ACETATE 1% OPHTH DROPS 5ML RIGHTEYE SCH (21:36)
[2025-04-23] MEDS: LATANOPROST 0.005% OPHTH DROPS 2.5ML LEFTEYE SCH (21:36)
[2025-04-24 00:01] VITALS: BP 114/60; PULSE 63; RESP 14; TEMP 36.8; O2SAT 98
[2025-04-24 04:01] VITALS: BP 121/58; PULSE 63; RESP 14; TEMP 36.7; O2SAT 99
[2025-04-24 08:00] VITALS: BP 108/69; PULSE 61; RESP 16; TEMP 36.7; O2SAT 98
[2025-04-24 08:01] LABS: CREATININE 1.0 mg/dL (0.6-1.3)
[2025-04-24 08:02] LABS: UREA NITROGEN BLOOD 9 mg/dL (9-23)
[2025-04-24 08:29] LABS: BASOPHILS % 0.9 % (0.0-2.0); EOSINOPHILS % 4.3 % (0.0-5.0); HEMATOCRIT. 37.3 % (42.0-52.0); HEMOGLOBIN. 12.1 g/dL (14.0-18.0); LYMPHOCYTES % 31.4 % (20.0-50.0); MEAN PLATELET VOLUME 8.8 fl (7.4-10.4); MONOCYTES % 9.7 % (2.0-8.0); NEUTROPHILS % 53.7 % (40.0-76.0); PLATELET 153 x1000/uL (130-400); RED BLOOD CELL COUNT 4.02 mill/uL (4.7-6.1); RED CELL DISTRIBUTION WIDTH 15.8 % (11.6-14.6)
[2025-04-24] MEDS: ENOXAPARIN 40MG/0.4ML SYR SUBCUT SCH (09:28)
[2025-04-24] MEDS ORDERED: LIDOCAINE HCL 1% 10 MG/ML 10ML VIAL ONE (10:03)
[2025-04-24] MEDS ORDERED: IOHEXOL-350 100 ML BOTTLE ONE (10:19)
[2025-04-24 12:00] VITALS: BP 125/71; PULSE 64; RESP 16; TEMP 36.6; O2SAT 98
[2025-04-24] MEDS: HYDROCODONE/ACETAMINOPHEN 5/325MG TABLET PO PRN (12:20)
[2025-04-24 16:00] VITALS: BP 118/52; PULSE 66; RESP 18; TEMP 36.7; O2SAT 96
[2025-04-24] MEDS: MORPHINE SULFATE 2 MG/ML INJ (NOT FOR IM USE) IV PRN (16:25)
[2025-04-24 20:05] VITALS: BP 126/92; PULSE 69; RESP 21; TEMP 37; O2SAT 98
[2025-04-25] MEDS ORDERED: MORPHINE SULFATE 2 MG/ML INJ (NOT FOR IM USE) IV PRN
[2025-04-25 00:05] VITALS: BP 118/66; PULSE 61; RESP 18; TEMP 36.7; O2SAT 96
[2025-04-25] MEDS ORDERED: CLONIDINE 0.1MG TABLET PO PRN (02:30)
[2025-04-25 02:50] LABS: BASOPHILS % 0.8 % (0.0-2.0); EOSINOPHILS % 3.6 % (0.0-5.0); HEMATOCRIT. 32.6 % (42.0-52.0); HEMOGLOBIN. 10.4 g/dL (14.0-18.0); LYMPHOCYTES % 24.3 % (20.0-50.0); MEAN PLATELET VOLUME 8.0 fl (7.4-10.4); MONOCYTES % 9.2 % (2.0-8.0); NEUTROPHILS % 62.1 % (40.0-76.0); PLATELET 132 x1000/uL (130-400); RED BLOOD CELL COUNT 3.55 mill/uL (4.7-6.1); RED CELL DISTRIBUTION WIDTH 15.3 % (11.6-14.6)
[2025-04-25 02:59] LABS: CREATININE 1.0 mg/dL (0.6-1.3); UREA NITROGEN BLOOD 12 mg/dL (9-23)
[2025-04-25 03:00] LABS: TROPONIN I HIGH SENSITIVITY < 4 ng/L (3.0-53)
[2025-04-25 04:05] VITALS: BP 110/67; PULSE 65; RESP 16; TEMP 36.6; O2SAT 98
[2025-04-25 08:00] VITALS: BP 125/76; PULSE 62; RESP 20; TEMP 36.4; O2SAT 99
[2025-04-25 11:51] LABS: TROPONIN I HIGH SENSITIVITY < 4 ng/L (3.0-53)
[2025-04-25 12:00] VITALS: BP 147/74; PULSE 71; RESP 18; TEMP 36.7; O2SAT 98
[2025-04-25 16:00] VITALS: BP 104/84; PULSE 72; RESP 20; TEMP 36.8; O2SAT 98
[2025-04-25 20:00] VITALS: BP 139/93; PULSE 85; RESP 18; TEMP 36.8; O2SAT 98
[2025-04-26] VITALS: BP 123/67; PULSE 69; RESP 17; TEMP 36.9; O2SAT 99
[2025-04-26 04:00] VITALS: BP 113/60; PULSE 68; RESP 17; TEMP 37.1; O2SAT 99
[2025-04-26 08:00] VITALS: BP 114/61; PULSE 70; TEMP 36.4; O2SAT 97
[2025-04-26 12:00] VITALS: BP 129/63; PULSE 71; RESP 20; TEMP 36.4; O2SAT 97
[2025-04-26 16:00] VITALS: BP 102/88; PULSE 69; RESP 18; TEMP 36.7; O2SAT 98
[2025-04-26 19:31] LABS: CLARITY URINE CLEAR (CLEAR); COLOR URINE YELLOW (YELLOW); GLUCOSE URINE NEGATIVE (NEGATIVE); KETONES URINE NEGATIVE (NEGATIVE); LEUKOCYTE ESTERASE URINE NEGATIVE (NEGATIVE); NITRITE URINE NEGATIVE (NEGATIVE); OCCULT BLOOD URINE NEGATIVE (NEGATIVE); PH URINE 7.0 (4.5-8.0); PROTEIN URINE NEGATIVE (NEGATIVE); SPECIFIC GRAVITY URINE 1.016 (1.005-1.030); UROBILINOGEN URINE 0.2 E.U./dL (0.2-1.0)
[2025-04-26 20:00] VITALS: BP 110/66; PULSE 62; RESP 22; TEMP 36.9; O2SAT 98
[2025-04-27] VITALS: BP 95/51; PULSE 65; RESP 18; TEMP 36.8; O2SAT 98
[2025-04-27 04:00] VITALS: BP 116/67; PULSE 60; RESP 20; TEMP 36.6; O2SAT 99
[2025-04-27 08:00] VITALS: BP 107/80; PULSE 57; RESP 15; TEMP 36.6; O2SAT 100
[2025-04-27 12:00] VITALS: BP 114/75; PULSE 64; RESP 18; TEMP 36.6; O2SAT 98
[2025-04-27] MEDS: HYDROCODONE/ACETAMINOPHEN 10/325MG TABLET PO PRN (15:57)
[2025-04-27 16:00] VITALS: BP 101/64; PULSE 61; RESP 15; TEMP 36.7; O2SAT 95
[2025-04-27] MEDS: DOCUSATE SODIUM 250MG CAPSULE PO SCH (16:30)
[2025-04-27 20:00] VITALS: BP 118/61; PULSE 66; RESP 17; TEMP 36.8; O2SAT 96
[2025-04-28] VITALS: BP 112/64; PULSE 60; RESP 19; TEMP 37; O2SAT 99
[2025-04-28 04:00] VITALS: BP 123/62; PULSE 63; RESP 19; TEMP 36.8; O2SAT 98
[2025-04-28 08:00] VITALS: BP 116/67; PULSE 59; RESP 19; TEMP 36.7; O2SAT 96
[2025-04-28] MEDS ORDERED: PROT40 MT (09:35)
[2025-04-28] MEDS ORDERED: TAMS-54 PO (09:35)
[2025-04-28] MEDS ORDERED: LIP40 PO (09:35)
[2025-04-28] MEDS ORDERED: XALAO LEFTEYE (09:35)
[2025-04-28] MEDS ORDERED: GABA800T97 MT (09:35)
[2025-04-28 11:03] VITALS: BP 116/67; PULSE 59; RESP 19; TEMP 98
[2025-04-28 12:00] VITALS: BP 119/60; PULSE 66; RESP 14; TEMP 36.8; O2SAT 98
== END 2025-04-28 13:30 | disposition home or self-care (01) | DRG 206 ==
LOC: ER 19:26 → 3WST 21:49 → EDBEDREQTM 21:52 → EDBEDREQ 21:52 → ENRESERV 22:53 → 3WST 04-25 17:33
PROVIDERS: ADMIT Internal Medicine; ATTEND Internal Medicine
PROC: 02HV33Z Insertion of Infusion Device into Superior Vena Cava, Percutaneous Approach (ICD-10-PCS; principal; 2025-04-24)
PROC: B548ZZA Ultrasonography of Superior Vena Cava, Guidance (ICD-10-PCS; 2025-04-24)
DX: M94.0 Chondrocostal junction syndrome [Tietze] (principal); I50.9 Heart failure, unspecified; E78.00 Pure hypercholesterolemia, unspecified; R07.89 Other chest pain; I25.10 Atherosclerotic heart disease of native coronary artery without angina pectoris; Z88.1 Allergy status to other antibiotic agents; Z86.73 Personal history of transient ischemic attack (TIA), and cerebral infarction without residual deficits; Z79.899 Other long term (current) drug therapy; Z88.8 Allergy status to other drugs, medicaments and biological substances
CPT/HCPCS: 36415; 36573; 71045; 71275; 80048; 80061; 80076; 81003; 83036; 83735; 83880; 84439; 84443; 84484; 85025; 85379; 93005; 93971; 99285; A4606; C1725; J1650; J2003; J2270; J2405; J2470; J7030; Q9967